=== PATIENT | female | born 1990 | race Hispanic/Latino ===

== ENCOUNTER 2024-07-08 18:00 | Inpatient (IN) | payer OTHER ==
[~2024-07-08 18:00] MED LIST: ePHEDrine 50 MG/ML VIAL ONE
[2024-07-08] MEDS ORDERED: Lidocaine 1% (PF) 30 ML VIAL SC PRN (20:31)
[2024-07-08] MEDS ORDERED: Methylergonovine 0.2 MG/ML VIAL IM PRN (20:31)
[2024-07-08] MEDS ORDERED: Ondansetron PF 4 MG/2 ML Vial IVP PRN (20:31)
[2024-07-08] MEDS ORDERED: hydrALAZINE 20 MG/ML VIAL SLOW IVP PRN (20:31)
[2024-07-08] MEDS ORDERED: HYDROcodone/Acetaminophen 5/325 mg Tablet PO PRN ×2 (20:31)
[2024-07-08] MEDS ORDERED: Carboprost 250 MCG/ML AMP IM PRN (20:31)
[2024-07-08] MEDS ORDERED: fentaNYL 50 mcg/mL 1 mL Vial SLOW IVP PRN (20:31)
[2024-07-08] MEDS ORDERED: Misoprostol 200 MCG TAB PR PRN (20:31)
[2024-07-08] MEDS ORDERED: Oxytocin 30 units/NS 500 ML 500 ML IV SCH ×2 (20:31)
[2024-07-08] MEDS ORDERED: Tranexamic Acid 1,000 MG/10 ML VIAL IVP PRN (20:31)
[2024-07-08] MEDS ORDERED: Acetaminophen 500 MG TAB PO PRN (20:31)
[2024-07-08] MEDS ORDERED: Diphenoxylate HCl/Atropine Tablet PO PRN ×2 (20:31)
[2024-07-08] MEDS ORDERED: Promethazine HCl 25 MG/ML VIAL IM PRN (20:31)
[2024-07-08 21:40] LABS: Hematocrit 32.6 % (34.9-44.5); Hemoglobin 11.6 g/dL (12.0-15.5); Mean Corpuscular HGB CONC 35.6 g/dL (32.0-36.0); Mean Corpuscular Volume 92.9 fL (81.6-98.3); Mean Platelet Volume 10.1 fL (7.4-10.4); Platelet Count 207 10x3/uL (150-450); RBC Distribution Width 13.4 % (11.5-14.5); Red Blood Cell (RBC) Count 3.51 10x6/uL (3.90-5.03); White Blood Cell (WBC) Count 8.2 10x3/uL (3.5-10.5)
[2024-07-08] MEDS: Misoprostol 100 MCG TAB VAG SCH (21:54)
[2024-07-08 22:33] LABS: HBsAg Index 0.22 S/CO (0-0.99); Hep B Surf Ag - L&D Non-Reactive S/CO (NonReactive)
[2024-07-08 22:34] LABS: Syphilis Antibody Nonreactive (Nonreactive); Syphilis Antibody Index 0.07 S/CO (<1.00 Non-Reactive)
[2024-07-09] MEDS ORDERED: Lactated Ringer's 500 ML IV PRN (10:28)
[2024-07-09] MEDS ORDERED: ePHEDrine Sulfate 50 MG/10 ML VIAL SLOW IVP PRN (10:28)
[2024-07-09] MEDS ORDERED: Acetaminophen 325 MG TAB PO PRN (10:28)
[2024-07-09] MEDS ORDERED: Moisturizing Cream (Eucerin) 113 GM JAR TOP PRN (10:28)
[2024-07-09] MEDS ORDERED: Ondansetron PF 4 MG/2 ML Vial IVP PRN (10:28)
[2024-07-09] MEDS ORDERED: Naloxone HCl 0.4 mg/ml Vial IVP PRN ×2 (10:28)
[2024-07-09] MEDS ORDERED: diphenhydrAMINE 50 MG/ML VIAL IVP PRN (10:28)
[2024-07-09] MEDS ORDERED: Promethazine HCl 25 MG/ML VIAL IM PRN (10:28)
[2024-07-09] MEDS ORDERED: Communication Order-Pharmacy FS SCH (10:30)
[2024-07-09] MEDS ORDERED: fentaNYL 2 mcg/Ropivacaine 0.2% Epidural 100 ML CADD EPIDURAL SCH (10:30)
[2024-07-09] MEDS: Ibuprofen 800 MG TAB PO PRN (17:22)
[2024-07-09] MEDS: Lactated Ringer's 1,000 ML IV SCH (20:44)
[2024-07-09] MEDS: fentaNYL/Ropivacaine Epidural 100 ML ONE (20:45)
[2024-07-09] MEDS: Benzocaine-Menthol 82.5 ML CAN TOP PRN (20:58)
[2024-07-09] MEDS: traMADol HCl 50 MG TAB PO PRN (21:10)
[2024-07-10] MEDS: Ibuprofen 800 MG TAB PO PRN (00:47)
[2024-07-10] MEDS: HYDROcodone/Acetaminophen 7.5/325 mg Tablet PO PRN (08:23)
[2024-07-11 07:31] VITALS: BP 124/73; TEMP 98.1
== END 2024-07-11 14:00 | disposition home or self-care (01) | DRG 807 ==
LOC: CSHLD 20:04 → CSHPP 07-09 19:53
PROVIDERS: ADMIT Obstetrics & Gynecology; ATTEND Obstetrics & Gynecology
PROC: 10E0XZZ Delivery of Products of Conception, External Approach (ICD-10-PCS; principal; 2024-07-09)
PROC: 0W8NXZZ Division of Female Perineum, External Approach (ICD-10-PCS; 2024-07-09)
DX: O80 Encounter for full-term uncomplicated delivery (principal); Z37.0 Single live birth; Z3A.39 39 weeks gestation of pregnancy
CPT/HCPCS: 36415; 51702; 85027; 85461; 86780; 86850; 86900; 86901; 87340; 90384; 96372; J3490